=== PATIENT | male | born 1980 | race Caucasian/White ===

== ENCOUNTER → 2019-12-11 | Day surgery (SDC) | payer OTHER ==
[~2019-12-11] MED LIST: Dextrose 5%-0.45% NaCl 1,000 ML IV SCH; Midazolam 1 MG/ML 2 ML SDV IV ONE; Midazolam 1 MG/ML 2 ML SDV ONE; fentaNYL 100 MCG/2 ML SDV IV ONE; fentaNYL 100 MCG/2 ML SDV ONE
--- NOTE | 2019-12-11 15:00 | OR ---
DATE: 12/11/2019 PREOPERATIVE DIAGNOSES: Rectal bleeding and family history of colon cancer. POSTOPERATIVE DIAGNOSES: Rectal bleeding and family history of colon cancer. PROCEDURE: Total colonoscopy. ANESTHESIA: Conscious sedation with IV Versed and fentanyl. SPECIMEN: None. OPERATIVE FINDINGS: Normal colonoscopy. RECOMMENDATIONS: Followup colonoscopy for screening in 10 years. INDICATION FOR PROCEDURE: This 39-year-old male has some left lower quadrant abdominal pain, questionable family history of colon cancer, and some occasional rectal bleeding. PROCEDURE IN DETAIL: After adequate preparation, a colonoscope was inserted into the rectum. This was easily passed all the way to the cecum. Confirmation of the cecum was made by visualization of the ileocecal valve and palpation in the right lower quadrant. The bowel prep was excellent. On withdrawal of the scope, no abnormalities were noted. Air was suctioned from the colon and the scope removed. [facility] /[id number]
== END ==
LOC: DL.ENDO 09:20
PROVIDERS: ATTEND Surgery
DX: K62.5 Hemorrhage of anus and rectum (principal); R10.32 Left lower quadrant pain; F17.200 Nicotine dependence, unspecified, uncomplicated; Z11.59 Encounter for screening for other viral diseases; Z80.0 Family history of malignant neoplasm of digestive organs
CPT/HCPCS: 45378; 87635; J2250; J3010; J7042; U0002